=== PATIENT | female | born 1980 | race Two or more races ===

== ENCOUNTER 2022-11-19 17:08 | Emergency (ER) | payer OTHER ==
[~2022-11-19] VITALS: Ht 162.6 cm; Wt 52.2 kg
== END 2022-11-19 22:45 | disposition home or self-care (01) ==
LOC: ER 17:08
DX: R53.81 Other malaise (principal); R50.9 Fever, unspecified; J00 Acute nasopharyngitis [common cold]; Z20.822 Contact with and (suspected) exposure to COVID-19

== ENCOUNTER 2022-11-24 11:17 | Emergency (ER) | payer OTHER ==
[~2022-11-24] VITALS: Ht 160 cm; Wt 54.4 kg
== END 2022-11-24 14:17 | disposition home or self-care (01) ==
LOC: ER 11:17
DX: J06.9 Acute upper respiratory infection, unspecified (principal)